=== PATIENT | female | born 1985 ===

== ENCOUNTER 2024-06-14 10:53 | Inpatient (IN) | payer OTHER ==
[~2024-06-14] VITALS: Ht 167.6 cm; Wt 113.4 kg
[~2024-06-14 10:53] MED LIST: PRENATAL VITAMI1 TAB; ZANTAC150 MG
[2024-06-14] MEDS ORDERED: SYNTHROID75 MCG PO (10:54)
[2024-06-14] MEDS ORDERED: FOLIC ACID0.8 M1 PO (10:54)
[2024-06-14] MEDS ORDERED: FERROCITE324 MG PO (10:55)
[2024-06-14 11:07] VITALS: BP 117/79
[2024-06-14 13:30] LABS: RH POSITIVE
[2024-06-23] MEDS ORDERED: LIDOCAINE HCL 1%/EPINEPHRINE 20ML VIAL IJ ONE ×2 (11:01→12:30)
[2024-06-23] MEDS ORDERED: BUPIVACAINE HCL/MPF 0.5% 30ML VIAL ONE (11:01)
[2024-06-23] MEDS ORDERED: POVIDONE-IODINE 118 ML BOTT TOP ONE ×2 (11:01→12:30)
[2024-06-23] MEDS ORDERED: CEFAZOLIN SODIUM 1,000 MG VIAL ONE (11:03)
[2024-06-23] MEDS ORDERED: VISTASEAL DUAL APPICATOR 1 EACH APPL TOP ONE ×2 (12:24→12:30)
[2024-06-23] MEDS ORDERED: THROMBIN,HU/FIBRINOGEN/CALCIUM 10 ML SYRINGE TOP ONE ×2 (12:24→12:30)
[2024-06-23] MEDS ORDERED: CEFAZOLIN SODIUM 1,000 MG VIAL IV ONE (12:30)
[2024-06-23] MEDS ORDERED: BUPIVACAINE HCL 30 ML VIAL IJ ONE (12:30)
[2024-06-23] MEDS ORDERED: RINGERS SOLUTION,LACTATED 1,000 ML IV SCH (13:31)
[2024-06-23] MEDS ORDERED: CELECOXIB 200 MG CAPSULE PO STA (13:32)
[2024-06-23] MEDS ORDERED: ACETAMINOPHEN 325 MG TABLET PO STA (13:32)
[2024-06-23] MEDS ORDERED: MORPHINE SULFATE 4 MG/ML VIAL IV ONE (14:05)
[2024-06-23] MEDS ORDERED: ACETAMINOPHEN 500 MG GEL..CAP PO ONE (15:55)
[2024-06-23] MEDS ORDERED: CELECOXIB 200 MG CAPSULE PO ONE (15:56)
[2024-06-23] MEDS ORDERED: ENALAPRILAT DIHYDRATE 1.25 MG/ML VIAL IV PRN (17:00)
[2024-06-23] MEDS ORDERED: GABAPENTIN 100 MG CAPSULE PO SCH (17:00)
[2024-06-23 17:12] LABS: HEMATOCRIT 35.3 % (36.0-45.00); HEMOGLOBIN 11.3 g/dL (12.0-15.00); MEAN CELL VOLUME 81.4 fL (80.00-100.00); MEAN CORPUSCULAR HEMOGLOBIN 26.1 pg (27.00-32.0); PLATELET COUNT 310 K/uL (150-450); RED BLOOD COUNT 4.34 M/uL (4.00-6.00)
[2024-06-23 17:15] VITALS: BP 117/79
[2024-06-23] MEDS ORDERED: ONDANSETRON HCL 2 MG/ML VIAL IV SCH (18:00)
[2024-06-23 19:31] LABS: HEMATOCRIT 32.7 % (36.0-45.00); HEMOGLOBIN 10.8 g/dL (12.0-15.00); MEAN CELL VOLUME 79.6 fL (80.00-100.00); MEAN CORPUSCULAR HEMOGLOBIN 26.3 pg (27.00-32.0); MEAN CORPUSCULAR HGB CONC 33.1 g/dl (32.0-36.0); PLATELET COUNT 297 K/uL (150-450); RED CELL DISTRIBUTION WIDTH 15.7 % (11.5-14.5)
[2024-06-24 02:03] VITALS: BP 110/73
[2024-06-24 05:06] LABS: HEMOGLOBIN 10.1 g/dL (12.0-15.00); MEAN CELL VOLUME 80.6 fL (80.00-100.00); MEAN CORPUSCULAR HEMOGLOBIN 26.4 pg (27.00-32.0); MEAN CORPUSCULAR HGB CONC 32.7 g/dl (32.0-36.0); PLATELET COUNT 275 K/uL (150-450); RED BLOOD COUNT 3.85 M/uL (4.00-6.00); RED CELL DISTRIBUTION WIDTH 15.6 % (11.5-14.5)
[2024-06-24 05:38] LABS: CALCIUM 8.4 mg/dL (8.5-10.1); CREATININE SERUM 0.61 mg/dL (0.55-1.02); GFR 109.77; POTASSIUM 4.06 mEq/L (3.5-5.1)
[2024-06-24] MEDS ORDERED: PATIENTS OWN MEDICATION (MEDICAMENTO EN PISO) PO SCH (06:00)
[2024-06-24] MEDS ORDERED: ACETAMINOPHEN 325 MG TABLET PO SCH (08:00)
[2024-06-24 08:06] VITALS: BP 123/83
[2024-06-24] MEDS ORDERED: CELECOXIB 200 MG CAPSULE PO SCH (09:00)
[2024-06-24 16:00] VITALS: BP 115/74
[2024-06-25] VITALS: BP 104/66; O2SAT 99
[2024-06-25 06:43] VITALS: BP 90/60
== END 2024-06-25 09:15 | disposition home or self-care (01) | DRG 743 ==
LOC: ADM 11:15 → CIR.AMB 06-16 07:00 → SURH 06-16 11:15 → CIR.AMB 06-16 11:15 → EDSTATUS 06-16 11:15 → O/R 06-23 06:46 → OB/GYN 06-23 14:50
PROVIDERS: ADMIT Obstetrics & Gynecology Gynecology; ATTEND Obstetrics & Gynecology Gynecology
PROC: 0UT74ZZ Resection of Bilateral Fallopian Tubes, Percutaneous Endoscopic Approach (ICD-10-PCS; 2024-06-23)
PROC: 0TNB4ZZ Release Bladder, Percutaneous Endoscopic Approach (ICD-10-PCS; 2024-06-23)
PROC: 0UT94ZZ Resection of Uterus, Percutaneous Endoscopic Approach (ICD-10-PCS; principal; 2024-06-23 07:00)
DX: N94.5 Secondary dysmenorrhea (principal); N80.559 Endometriosis of other parts of the colon, unspecified depth

== ENCOUNTER 2024-11-19 11:23 | Emergency (ER) | payer OTHER ==
[~2024-11-19] VITALS: Ht 167.6 cm; Wt 111.1 kg
[~2024-11-19 11:23] MED LIST changes: +FERROCITE324 MG PO; +FOLIC ACID0.8 M1 PO; +SYNTHROID75 MCG PO
[2024-11-19] MEDS ORDERED: KETOROLAC TROMETHAMINE 30 MG VIAL IV ONE (12:15)
[2024-11-19] MEDS ORDERED: KETOROLAC TROMETHAMINE 30 MG VIAL ONE (12:25)
[2024-11-19 12:52] LABS: BASO % 0.3 % (0.1-1.2); EOS # 0.04 (0.04-0.54); EOS % 0.4 % (0.7-7.0); LYMPH # 1.49 (1.18-3.74); LYMPH % 15.5 % (19.3-53.1); MEAN PLATELET VOLUME 10.70 fl (9.4-12.4); MONO # 0.33 (0.24-0.82); MONO % 3.4 % (4.7-12.5); NEUT # 7.73 (1.56-6.13); NEUT % 80.2 % (34.0-71.1); RED CELL DISTRIBUTION WIDTH 15.5 % (11.6-14.4)
[2024-11-19 13:30] LABS: BUN CREA RATIO 11.0 (7.0-25.0); CREATININE SERUM 0.65 mg/dL (0.55-1.02); GFR 102.01; GLUCOSE FASTING 94.0 mg/dL (65-100); OSMOLALITY SERUM 283.0 MOSM/KG (275-295)
[2024-11-19 13:49] LABS: URINE APPEARANCE Clear; URINE BILIRRUBIN Negative (NEGATIVE); URINE BLOOD Negative; URINE COLOR Yellow; URINE GLUCOSE Negative (NEGATIVE); URINE KETONE Negative (NEGATIVE); URINE LEUKOCYTE Negative; URINE NITRATE Negative; URINE PROTEIN Negative (NEGATIVE); URINE UROBILINOGEN 0.2 E.U./dl
[2024-11-19 13:52] LABS: URINE BACTERIA 27.5 uL (0.0-1933); URINE EPITHELIAL CELLS 2.8 uL (0.0-38.8); URINE RBC 2.6 uL (0.0-20.8)
[2024-11-19 13:58] LABS: URINE CAST 0.00 uL (0.0-1.40); URINE WBC 0.7 uL (0.0-23.2)
[2024-11-19] MEDS ORDERED: BARIUM SULFATE 450 ML ORAL.SUSP PO ONE (15:41)
[2024-11-19] MEDS ORDERED: 0.9 % SODIUM CHLORIDE 1,000 ML IV SCH (16:15)
[2024-11-19] MEDS ORDERED: DICLOFENAC SODI75 MG PO (18:09)
[2024-11-19 18:26] VITALS: BP 127/81; O2SAT 99
== END 2024-11-19 18:27 | disposition home or self-care (01) ==
LOC: ER 11:23
PROVIDERS: Emergency Medicine
DX: R10.2 Pelvic and perineal pain (principal); E03.9 Hypothyroidism, unspecified